=== PATIENT | male | born 1975 | race Caucasian/White ===

== ENCOUNTER 2017-11-18 14:27 | Emergency (ER) | payer MEDICAID, OTHER ==
[2017-11-18 14:27] VITALS: BMI 26.4
[2017-11-18] MEDS ORDERED: levETIRAcetam 1,500 MG in Sodium Chloride 0.9% 100 ML IV ONE (14:51)
[2017-11-18 14:53] VITALS: TEMP 97.4
[2017-11-18 15:20] LABS: BASO # 0.04 K/mm3 (0.0-2.0); BASO % 0.4 % (0.0-3.0); EOS # 0.3 (0.0-0.7); EOS % 3.2 % (1.5-5.0); GRAN # 5.18 (1.4-6.5); GRAN % 53.2 % (50.0-68.0); HEMOGLOBIN 14.8 g/dL (14.0-18.0); LYMPH # 3.8 (1.2-3.4); LYMPH % 38.5 % (22.0-35.0); MEAN CELL VOLUME 83.2 fl (80.0-105.0); MEAN CORPUSCULAR HEMOGLOBIN 27.6 pg (25.0-35.0); MEAN CORPUSCULAR HGB CONC 33.1 g/dl (31.0-37.0); MEAN PLATELET VOLUME 10.1 fl (7.0-11.0); MONO # 0.5 (0.1-0.6); MONO % 4.7 % (1.0-6.0); RBC 5.37 10^6/uL (3.5-6.1); RED CELL DISTRIBUTION WIDTH 13.6 % (11.5-14.5); WHITE BLOOD COUNT 9.7 10^3/ul (4.5-11.0)
--- NOTE | 2017-11-18 15:34 | ED PDOC ---
Arrival/HPI - General Chief Complaint: Seizure Time Seen by Provider: 11/18/17 14:32 Historian: Patient - History of Present Illness Narrative History of Present Illness (Text): 11/18/17 15:33 42yo male with PMhx of seizure bib BLS for witnessed seizure this afternoon. The by the bedside states she saw the patient shaking while sitting on a sofa. States this is patient's typical symptom with seizure. States patient was altered for few seconds s/p. However denies tongue bitting or urinary incontinence. Patient states he usually takes Keppra 750m twice daily, but only took a tab yesterday because he ran out of his medication. States he saw his Doctor 3months ago. He denies any current headache, chest pain, focal weakness, dizziness, any other complaint. Past Medical History - Provider Review Nursing Documentation Reviewed: Yes - Infectious Disease Hx of Infectious Diseases: None - Cardiac Hx Cardiac Disorders: No - Pulmonary Hx Respiratory Disorders: No - Neurological Hx Neurological Disorder: Yes Hx Seizures: Yes Other/Comment: brain mass s/p removal - HEENT Hx HEENT Disorder: No - Renal Hx Renal Disorder: No - Endocrine/Metabolic Hx Endocrine Disorders: No - Hematological/Oncological Hx Blood Disorders: No - Integumentary Hx Dermatological Disorder: No - Musculoskeletal/Rheumatological Hx Musculoskeletal Disorders: Yes Hx Fractures: Yes - Gastrointestinal Hx Gastrointestinal Disorders: No - Genitourinary/Gynecological Hx Genitourinary Disorders: No - Psychiatric Hx Psychophysiologic Disorder: No Hx Substance Use: No - Surgical History Hx Musculoskeletal Surgery: Yes (bilat shoulder "with metal put in") Other/Comment: brain surgery - Anesthesia Hx Anesthesia: Yes Hx Anesthesia Reactions: No Hx Malignant Hyperthermia: No - Suicidal Assessment Feels Threatened In Home Enviroment: No Family/Social History - Physician Review Nursing Documentation Reviewed: Yes Family/Social History: Unknown Family HX Smoking Status: Former Smoker Hx Alcohol Use: No Hx Substance Use: No Allergies/Home Meds Allergies/Adverse Reactions: Allergies No Known Allergies Allergy (Verified 11/18/17 14:39) Review of Systems - Physician Review All systems were reviewed & negative as marked: Yes - Review of Systems Constitutional: Normal Eyes: Normal ENT: Normal Respiratory: Normal Cardiovascular: Normal Gastrointestinal: Normal Genitourinary Male: Normal Musculoskeletal: Normal Skin: Normal Neurological: Seizure Endocrine: Normal Hemo/Lymphatic: Normal Psychiatric: Normal Physical Exam Vital Signs Reviewed: Yes Vital Signs Temp Pulse Resp BP Pulse Ox 11/18/17 16:41 82 16 132/79 99 11/18/17 14:53 97.4 F L 11/18/17 14:44 93 H 15 142/73 91 L Temperature: Afebrile Blood Pressure: Normal Pulse: Regular Respiratory Rate: Normal Appearance: Positive for: Well-Appearing, Non-Toxic, Comfortable Pain Distress: None Mental Status: Positive for: Alert and Oriented X 3 - Systems Exam Head: Present: Atraumatic, Normocephalic Pupils: Present: PERRL Extroacular Muscles: Present: EOMI Conjunctiva: Present: Normal Mouth: Present: Moist Mucous Membranes Neck: Present: Normal Range of Motion Respiratory/Chest: Present: Clear to Auscultation, Good Air Exchange. No: Respiratory Distress, Accessory Muscle Use Cardiovascular: Present: Regular Rate and Rhythm, Normal S1, S2. No: Murmurs Abdomen: Present: Normal Bowel Sounds. No: Tenderness, Distention, Peritoneal Signs Back: Present: Normal Inspection Upper Extremity: Present: Normal Inspection. No: Cyanosis, Edema Lower Extremity: Present: Normal Inspection. No: Edema Neurological: Present: GCS=15, CN II-XII Intact, Speech Normal, Motor Func Grossly Intact, Normal Sensory Function, Normal Cerebellar Funct, Norm Deep Tendon Reflexes, Gait Normal, Memory Normal Skin: Present: Warm, Dry, Normal Color. No: Rashes Psychiatric: Present: Alert, Oriented x 3, Normal Insight, Normal Concentration Medical Decision Making ED Course and Treatment: 11/18/17 17:28 PT in ED for stated history. He was AAO x3 and neurologically intact in ED. Lab was nonspecific. Keppra level pending PT was loaded with 1500mg of keppra in ED Head CT IMPRESSION: Right frontotemporal encephalomalacia with 5 mm midline shift towards the left side. Cystic encephalomalacia right middle cranial fossa. No acute hemorrhage. No evidence of acute infarct. Status post right frontotemporal craniotomy. Case was ANT Adams in ED and she recommends that pt be DC home with a rx of 1000mg keppra and outpt f/u in 2weeks Result and plan was DW both pt and the and he expressed understanding - Lab Interpretations Lab Results: 11/18/17 14:50 11/18/17 14:50 Lab Results 11/18/17 14:50: Sodium 141, Potassium 4.2, Chloride 104, Carbon Dioxide 26, Anion Gap 15, BUN 19, Creatinine 1.0, Est GFR ( Amer) > 60, Est GFR (Non- Af Amer) > 60, Random Glucose 185 H, Calcium 10.7 H, Total Bilirubin 0.4, AST 52 , ALT 60 H, Alkaline Phosphatase 68, Total Creatine Kinase 743 H, CK-MB (CK-2) 3.0, CK-MB (CK-2) % 0.3 L, Total Protein 7.3, Albumin 4.1, Globulin 3.2, Albumin /Globulin Ratio 1.3 11/18/17 14:50: WBC 9.7, RBC 5.37, Hgb 14.8, Hct 44.7, MCV 83.2, MCH 27.6, MCHC 33.1, RDW 13.6, Plt Count 322, MPV 10.1, Gran % 53.2, Lymph % (Auto) 38.5 H, [place] % (Auto) 4.7, Eos % (Auto) 3.2, Baso % (Auto) 0.4, Gran # 5.18, Lymph # ( Auto) 3.8 H, [place] # (Auto) 0.5, Eos # (Auto) 0.3, Baso # (Auto) 0.04 - RAD Interpretation Radiology Orders: 11/18/17 14:49 HEAD W/O CONTRAST [CT] Stat - Medication Orders Current Medication Orders: Discontinued Medications Levetiracetam 1,500 mg/ Sodium (Chloride) 115 mls @ 460 mls/hr IV ONCE ONE Stop: 11/18/17 15:05 Last Admin: 11/18/17 16:01 Dose: 460 mls/hr eMAR Start Stop Document 11/18/17 16:01 AL (Rec: 11/18/17 16:01 AL [id number]) Intravenous Solution Start Date 11/18/17 Start Time 16:01 Disposition/Present on Arrival - Present on Arrival Any Indicators Present on Arrival: No History of DVT/PE: No History of Uncontrolled Diabetes: No Urinary Catheter: No History of Decub. Ulcer: No History Surgical Site Infection Following: None - Disposition Have Diagnosis and Disposition been Completed?: Yes Diagnosis: Seizure Disposition: HOME/ ROUTINE Disposition Time: 17:30 Patient Plan: Discharge Condition: STABLE Discharge Instructions (ExitCare): Seizures, Adult (DC) Additional Instructions: follow up with Neurologist, Dr. Adams in 2weeks Return to ED for any new symptoms Prescriptions: Levetiracetam [Keppra] 500 mg PO BID #120 tablet Referrals: Lolita Paulino, [Primary Care Provider] - Follow up with primary Darin Adams MD [Staff Provider] - Follow up with primary Forms: [employer] (German)
[2017-11-18 15:39] LABS: ALT/SGPT 60 U/L (7-56); AST/SGOT 52 U/L (17-59); BLOOD UREA NITROGEN 19 mg/dL (7-21); CALCIUM 10.7 mg/dL (8.4-10.5); GFR AFRICAN-AMERICAN > 60; GFR NON-AFRICAN AMERICAN > 60
--- NOTE | 2017-11-18 15:57 | CT ---
PROCEDURE: CT HEAD WITHOUT CONTRAST. HISTORY: seizure COMPARISON: 09/20/2015 TECHNIQUE: Axial computed tomography images were obtained through the head/brain without intravenous contrast. Radiation dose: Total exam DLP = 873.41 mGy-cm. This CT exam was performed using one or more of the following dose reduction techniques: Automated exposure control, adjustment of the mA and/or kV according to patient size, and/or use of iterative reconstruction technique. FINDINGS: HEMORRHAGE: No intracranial hemorrhage. BRAIN: There is no intracranial mass. There is right frontotemporal encephalomalacia, essentially unchanged compared to prior examination. There is cystic encephalomalacia of the right middle cranial fossa, unchanged. There is no evidence of acute infarct. VENTRICLES: There is no hydrocephalus. There is midline shift towards the left by approximately 5 mm. This is essentially unchanged from prior examination. The basilar cisterns are preserved. CALVARIUM: Right frontotemporal craniotomy. PARANASAL SINUSES: Mild chronic ethmoid sinusitis MASTOID AIR CELLS: Unremarkable as visualized. No inflammatory changes. OTHER FINDINGS: None. IMPRESSION: Right frontotemporal encephalomalacia with 5 mm midline shift towards the left side. Cystic encephalomalacia right middle cranial fossa. No acute hemorrhage. No evidence of acute infarct. Status post right frontotemporal craniotomy.
[2017-11-18 16:30] LABS: ALB/GLOB RATIO 1.3 (1.1-1.8); ALBUMIN 4.1 g/dL (3.0-4.8)
[2017-11-18 16:42] VITALS: RESP 16
[2017-11-18 16:50] LABS: CK MB% 0.3 % (2.5-3.0)
[2017-11-18 17:48] VITALS: BP 130/76; PULSE 81; O2SAT 97
--- NOTE | 2017-11-18 19:35 | CARD ---
APPROVED REPORT EKG Measurement Heart [id number] <Conclusion> Normal sinus rhythm Prolonged QT Abnormal ECG
== END 2017-11-18 17:57 | disposition home or self-care (01) ==
LOC: ED 14:27
DX: R56.9 Unspecified convulsions (principal); Z87.891 Personal history of nicotine dependence
CPT/HCPCS: 70450; 80053; 80299; 82550; 82553; 85025; 93005; 99285; J1953

== ENCOUNTER 2018-08-10 22:45 | Emergency (ER) | payer SELFPAY ==
[2018-08-10 22:46] VITALS: BMI 34.8
[2018-08-10 22:48] VITALS: TEMP 98.8
[2018-08-10 23:31] LABS: BASO # 0.02 K/mm3 (0.0-2.0); BASO % 0.2 % (0.0-3.0); EOS # 0.2 (0.0-0.7); EOS % 2.6 % (1.5-5.0); GRAN # 5.38 (1.4-6.5); GRAN % 57.3 % (50.0-68.0); HEMOGLOBIN 14.2 g/dL (14.0-18.0); LYMPH # 3.2 (1.2-3.4); LYMPH % 33.5 % (22.0-35.0); MEAN CELL VOLUME 80.9 fl (80.0-105.0); MEAN CORPUSCULAR HEMOGLOBIN 27.4 pg (25.0-35.0); MEAN CORPUSCULAR HGB CONC 33.8 g/dl (31.0-37.0); MEAN PLATELET VOLUME 9.4 fl (7.0-11.0); MONO # 0.6 (0.1-0.6); MONO % 6.4 % (1.0-6.0); RBC 5.19 10^6/uL (3.5-6.1); RED CELL DISTRIBUTION WIDTH 13.4 % (11.5-14.5); WHITE BLOOD COUNT 9.4 10^3/uL (4.5-11.0)
[2018-08-10 23:39] LABS: ALB/GLOB RATIO 1.3 (1.1-1.8); ALT/SGPT 50 U/L (7-56); AST/SGOT 31 U/L (17-59); BLOOD UREA NITROGEN 21 mg/dL (7-21); CALCIUM 10.1 mg/dL (8.4-10.5); GFR NON-AFRICAN AMERICAN > 60
--- NOTE | 2018-08-11 01:19 | ED PDOC ---
Arrival/HPI - General Chief Complaint: Seizure Time Seen by Provider: 08/10/18 22:45 Historian: Patient - History of Present Illness Narrative History of Present Illness (Text): 08/11/18 04:07 43 year old male, whose past medical history includes brain tumor resected in 2013, and seizure disorder, presents to the emergency department for evaluation status post seizure. Patient informs of his history of seizures, stating he is compliant on Keppra. Patient states his last known seizure was 8 months ago. Patient denies any fever, headache, chest pain, shortness of breath, or any other complaints. Time/Duration: Prior to Arrival Past Medical History - Provider Review Nursing Documentation Reviewed: Yes - Infectious Disease Hx of Infectious Diseases: None - Cardiac Hx Cardiac Disorders: No - Pulmonary Hx Respiratory Disorders: No - Neurological Hx Neurological Disorder: Yes Hx Seizures: Yes Other/Comment: brain mass s/p removal - HEENT Hx HEENT Disorder: No - Renal Hx Renal Disorder: No - Endocrine/Metabolic Hx Endocrine Disorders: No - Hematological/Oncological Hx Blood Disorders: No - Integumentary Hx Dermatological Disorder: No - Musculoskeletal/Rheumatological Hx Musculoskeletal Disorders: Yes Hx Fractures: Yes - Gastrointestinal Hx Gastrointestinal Disorders: No - Genitourinary/Gynecological Hx Genitourinary Disorders: No - Psychiatric Hx Psychophysiologic Disorder: No Hx Substance Use: No - Surgical History Hx Musculoskeletal Surgery: Yes (bilat shoulder "with metal put in") Other/Comment: brain surgery - Anesthesia Hx Anesthesia: Yes Hx Anesthesia Reactions: No Hx Malignant Hyperthermia: No - Suicidal Assessment Feels Threatened In Home Enviroment: No Family/Social History - Physician Review Nursing Documentation Reviewed: Yes Family/Social History: No Known Family HX Smoking Status: Former Smoker Hx Alcohol Use: No Hx Substance Use: No Allergies/Home Meds Allergies/Adverse Reactions: Allergies No Known Allergies Allergy (Verified 08/10/18 22:46) Review of Systems - Physician Review All systems were reviewed & negative as marked: Yes - Review of Systems Constitutional: absent: Fevers Respiratory: absent: SOB Cardiovascular: absent: Chest Pain Neurological: Seizure. absent: Headache Physical Exam Vital Signs Reviewed: Yes Vital Signs Temp Pulse Resp BP Pulse Ox 08/10/18 22:48 98.8 F 100 H 20 133/85 95 Temperature: Afebrile Blood Pressure: Normal Pulse: Tachycardic Respiratory Rate: Normal Appearance: Positive for: Well-Appearing, Non-Toxic, Comfortable Pain Distress: None Mental Status: Positive for: Alert and Oriented X 3 Finger Stick Blood Glucose: 119 - Systems Exam Head: Present: Atraumatic, Normocephalic Pupils: Present: PERRL Extroacular Muscles: Present: EOMI Conjunctiva: Present: Normal Mouth: Present: Moist Mucous Membranes. No: Normal Tounge (Very small bite valdez on left side of tongue) Neck: Present: Normal Range of Motion Respiratory/Chest: Present: Clear to Auscultation, Good Air Exchange. No: Respiratory Distress, Accessory Muscle Use Cardiovascular: Present: Regular Rate and Rhythm, Normal S1, S2. No: Murmurs Abdomen: No: Tenderness, Distention, Peritoneal Signs Back: Present: Normal Inspection Upper Extremity: Present: Normal Inspection. No: Cyanosis, Edema Lower Extremity: Present: Normal Inspection. No: Edema Neurological: Present: GCS=15, CN II-XII Intact, Speech Normal Skin: Present: Warm, Dry, Normal Color. No: Rashes Psychiatric: Present: Alert, Oriented x 3, Normal Insight, Normal Concentration Medical Decision Making ED Course and Treatment: 08/11/18 01:22 Impression: 43 year old male presents for evaluation status post seizure. Plan: -- CT Head -- Reassess and disposition Prior Visits: Notes and results from previous visits were reviewed. Progress Notes: 08/11/18 01:22 CT of the head Clinical history: seizure. Technique: Multiple axial CT images were obtained through the head without administration of contrast. DLP 938.87 Comparison: 11/18/2017. Findings: The ventricles and sulci are symmetric bilaterally. Encephalomalacia and craniotomy changes in the right temporal lobe are stable. Diffuse low attenuation in the right frontal lobe and right temporal lobe remain with minimal mass effect appreciated. There is no evidence of acute hemorrhage or infarct. There is no midline shift, mass effect, or extra-axial fluid collection. The osseous structures are unremarkable. The visualized paranasal sinuses and mastoid air cells are clear. Impression: 1. No evidence of acute intracranial hemorrhage or infarct. 2. Craniotomy changes in the right temporal lobe with area of low attenuation in the right middle cerebral artery distribution is stable since the prior examination. Minimal mass effect remains. If there is further clinical concern, MRI of the brain would be recommended for further evaluation. 08/11/18 01:30 Patient will follow up with neurologist at [place] in the next few days - Lab Interpretations Lab Results: 08/10/18 23:15 08/10/18 23:15 Lab Results 08/10/18 23:15: Sodium 137, Potassium 4.1, Chloride 104, Carbon Dioxide 23, Anion Gap 15, BUN 21, Creatinine 1.1, Est GFR ( Amer) > 60, Est GFR (Non- Af Amer) > 60, Random Glucose 110, Calcium 10.1, Total Bilirubin 0.2, AST 31, ALT 50, Alkaline Phosphatase 60, Total Protein 7.1, Albumin 4.0, Globulin 3.1, Albumin/Globulin Ratio 1.3 08/10/18 23:15: WBC 9.4, RBC 5.19, Hgb 14.2, Hct 42.0, MCV 80.9, MCH 27.4, MCHC 33.8, RDW 13.4, Plt Count 304, MPV 9.4, Gran % 57.3, Lymph % (Auto) 33.5, [place] % (Auto) 6.4 H, Eos % (Auto) 2.6, Baso % (Auto) 0.2, Gran # 5.38, Lymph # (Auto) 3.2, [place] # (Auto) 0.6, Eos # (Auto) 0.2, Baso # (Auto) 0.02 - RAD Interpretation Radiology Orders: 08/10/18 23:05 HEAD W/O CONTRAST [CT] Stat - Scribe Statement The provider has reviewed the documentation as recorded by the Clayton Ramos Provider Scribe Attestation: All medical record entries made by the Eddibsusan were at my direction and personally dictated by me. I have reviewed the chart and agree that the record accurately reflects my personal performance of the history, physical exam, medical decision making, and the department course for this patient. I have also personally directed, reviewed, and agree with the discharge instructions and disposition. Disposition/Present on Arrival - Present on Arrival Any Indicators Present on Arrival: No History of DVT/PE: No History of Uncontrolled Diabetes: No Urinary Catheter: No History of Decub. Ulcer: No History Surgical Site Infection Following: None - Disposition Have Diagnosis and Disposition been Completed?: Yes Diagnosis: Seizure Disposition: HOME/ ROUTINE Disposition Time: 00:55 Condition: GOOD Discharge Instructions (ExitCare): Seizures, Adult (DC) Additional Instructions: LIZETTE DAI, thank you for letting us take care of you today. Your provider was Fidencio Warren DO and you were treated for SEIZURE. The emergency medical care you received today was directed at your acute symptoms. If you were prescribed any medication, please fill it and take as directed. It may take several days for your symptoms to resolve. Return to the Emergency Department if your symptoms worsen, do not improve, or if you have any other problems. Please contact your doctor or call one of the physicians/clinics you have been referred to that are listed on the Patient Visit Information form that is included in your discharge packet. Bring any paperwork you were given at discharge with you along with any medications you are taking to your follow up visit. Our treatment cannot replace ongoing medical care by a primary care pro vider outside of the emergency department. Thank you for allowing the [facility] team to be part of your care today. Continue taking your medication as prescribed and follow up with your ne urologist in the morning. Return to the emergency room if you have any concerns. Referrals: FAMILY PROVIDER,NO [Primary Care Provider] - Follow up with primary Forms: [employer] (Turkish)
[2018-08-11 02:17] VITALS: BP 110/65; PULSE 81; RESP 18; O2SAT 96
--- NOTE | 2018-08-11 10:04 | CT ---
Date of service: 08/11/2018 PROCEDURE: CT HEAD WITHOUT CONTRAST. HISTORY: seizure - h/o brain tumor removed in 2013 COMPARISON: CT 09/20/2015 and 11/18/2017 TECHNIQUE: Axial computed tomography images were obtained through the head/brain without intravenous contrast. Radiation dose: Total exam DLP = 938.87 mGy-cm. This CT exam was performed using one or more of the following dose reduction techniques: Automated exposure control, adjustment of the mA and/or kV according to patient size, and/or use of iterative reconstruction technique. FINDINGS: HEMORRHAGE: No intracranial hemorrhage. BRAIN: There has been a right-sided craniotomy. There is a large area of cystic encephalomalacia or a postoperative cyst in the right middle cranial fossa measuring 43 x 51 mm. There is a large area of low density in the right frontal and temporal lobe measuring 55 x 100 mm. There is associated mass effect with compression of the right lateral ventricle. The finding is suspicious for underlying infiltrating tumor. The finding is unchanged. MRI would be helpful for further evaluation. VENTRICLES: Unremarkable. No hydrocephalus. CALVARIUM: Unremarkable. PARANASAL SINUSES: Unremarkable as visualized. No significant inflammatory changes. MASTOID AIR CELLS: Unremarkable as visualized. No inflammatory changes. OTHER FINDINGS: The report concurs with the preliminary [facility] report IMPRESSION: There is a large area of low density in the right frontal and temporal lobe measuring 55 x 100 mm. There is associated mass effect with compression of the right lateral ventricle. The finding is suspicious for underlying infiltrating tumor. The finding is unchanged. MRI would be helpful for further evaluation
== END 2018-08-11 01:11 | disposition home or self-care (01) ==
LOC: ED 22:45
DX: G40.909 Epilepsy, unspecified, not intractable, without status epilepticus (principal); Z87.891 Personal history of nicotine dependence

== ENCOUNTER 2018-10-11 14:14 | Emergency (ER) | payer SELFPAY ==
[2018-10-11 14:18] VITALS: BMI 21.7
[2018-10-11 14:44] VITALS: RESP 18
[2018-10-11] MEDS ORDERED: Sodium Chloride 0.9% 1,000 ML IV STA (14:44)
[2018-10-11 15:01] LABS: ALB/GLOB RATIO 1.4 (1.1-1.8); ALBUMIN 4.5 g/dL (3.0-4.8); ALT/SGPT 34 U/L (7-56); AST/SGOT 26 U/L (17-59); BLOOD UREA NITROGEN 17 mg/dL (7-21); CALCIUM 10.2 mg/dL (8.4-10.5); GFR NON-AFRICAN AMERICAN > 60
--- NOTE | 2018-10-11 15:23 | ED PDOC ---
Arrival/HPI - General Chief Complaint: Seizure Time Seen by Provider: 10/11/18 14:21 Historian: Patient - History of Present Illness Narrative History of Present Illness (Text): 10/11/18 15:20 A 43 year old male, whose past medical history includes brain tumor s/p surgery and seizure disorder, presents to the emergency department complaining of witnessed seizure episode at home. Patient reports seizure was witnessed by his . Patient denies any trauma/fall, or any other complaints at this time. No PMD Past Medical History - Provider Review Nursing Documentation Reviewed: Yes - Infectious Disease Hx of Infectious Diseases: None - Cardiac Hx Cardiac Disorders: No - Pulmonary Hx Respiratory Disorders: No - Neurological Hx Neurological Disorder: Yes Hx Seizures: Yes Other/Comment: brain mass s/p removal - HEENT Hx HEENT Disorder: No - Renal Hx Renal Disorder: No - Endocrine/Metabolic Hx Endocrine Disorders: No - Hematological/Oncological Hx Blood Disorders: No - Integumentary Hx Dermatological Disorder: No - Musculoskeletal/Rheumatological Hx Musculoskeletal Disorders: Yes Hx Fractures: Yes - Gastrointestinal Hx Gastrointestinal Disorders: No - Genitourinary/Gynecological Hx Genitourinary Disorders: No - Psychiatric Hx Psychophysiologic Disorder: No Hx Substance Use: No - Surgical History Hx Musculoskeletal Surgery: Yes (bilat shoulder "with metal put in") Other/Comment: brain surgery - Anesthesia Hx Anesthesia: Yes Hx Anesthesia Reactions: No Hx Malignant Hyperthermia: No - Suicidal Assessment Feels Threatened In Home Enviroment: No Family/Social History - Physician Review Nursing Documentation Reviewed: Yes Family/Social History: No Known Family HX Smoking Status: Former Smoker Hx Alcohol Use: No Hx Substance Use: No Allergies/Home Meds Allergies/Adverse Reactions: Allergies No Known Allergies Allergy (Verified 08/10/18 22:46) Review of Systems - Physician Review All systems were reviewed & negative as marked: Yes - Review of Systems Constitutional: absent: Other (no trauma/fall) Neurological: Seizure Physical Exam Vital Signs Reviewed: Yes Vital Signs Temp Pulse Resp BP Pulse Ox 10/11/18 14:15 98.7 F 94 H 18 96/57 L 96 Temperature: Afebrile Blood Pressure: Normal Pulse: Regular Respiratory Rate: Normal Appearance: Positive for: Well-Appearing, Non-Toxic, Comfortable Pain Distress: None Mental Status: Positive for: Alert and Oriented X 3 - Systems Exam Head: Present: Atraumatic, Normocephalic Pupils: Present: PERRL Extroacular Muscles: Present: EOMI Conjunctiva: Present: Normal Mouth: Present: Moist Mucous Membranes Neck: Present: Normal Range of Motion. No: JVD Respiratory/Chest: Present: Clear to Auscultation, Good Air Exchange. No: Respiratory Distress, Accessory Muscle Use Cardiovascular: Present: Regular Rate and Rhythm, Normal S1, S2. No: Murmurs Abdomen: No: Tenderness, Distention, Peritoneal Signs Back: Present: Normal Inspection Upper Extremity: Present: Normal Inspection. No: Cyanosis, Edema Lower Extremity: Present: Normal Inspection. No: Edema Neurological: Present: GCS=15, CN II-XII Intact, Speech Normal, Motor Func Grossly Intact (5/5 motor strength.) Skin: Present: Warm, Dry, Normal Color. No: Rashes Psychiatric: Present: Alert, Oriented x 3, Normal Insight, Normal Concentration Medical Decision Making ED Course and Treatment: 10/11/18 15:22 Impression: 43 year old male with witnessed seizure episode at home (witnessed by ). No acute findings on physical exam; 5/5 motor strength. Plan: -- Labs -- IV Fluids -- Urinalysis -- Urine Culture -- Reassess and disposition Progress Notes: The pt is feeling better and has no other complaint. He is requesting MRI but told him that I had plan for ct head. He had one episode this afternoon and has been seizure free since that time. His last seizure before today was last July. 10/11/2018 18:[address] IMPRESSION: Large low density area mainly at the right temporal lobe region but extending to the parietal lobe and in the deep white matter of the parietal region. The findings are likely related to an area of encephalomalacia and infarction. Similar appearance is compared to the previous study. No acute hemorrhage. Craniotomy defect noted. Clinical correlation advised. Dictator: Sunny Henderson MD Progress notes: The pt is feeling better and had no seizure while he's in the ED. The ct head shows no new changes. He wants to follow up with our neurologist. - Lab Interpretations Lab Results: Total Bilirubin 0.3 mg/dL (0.2-1.3) 10/11/18 14:47 AST 26 U/L (17-59) 10/11/18 14:47 ALT 34 U/L (7-56) 10/11/18 14:47 Alkaline Phosphatase 63 U/L (38-126) 10/11/18 14:47 Total Protein 7.8 g/dL (5.8-8.3) 10/11/18 14:47 Albumin 4.5 g/dL (3.0-4.8) 10/11/18 14:47 Globulin 3.3 gm/dL 10/11/18 14:47 Albumin/Globulin Ratio 1.4 (1.1-1.8) 10/11/18 14:47 - Medication Orders Current Medication Orders: Sodium Chloride (Sodium Chloride 0.9%) 1,000 mls @ 999 mls/hr IV .Q1H1M STA Stop: 10/11/18 15:44 Last Admin: 10/11/18 15:11 Dose: 999 mls/hr eMAR Start Stop Document 10/11/18 15:11 [facility] (Rec: 10/11/18 15:11 [facility] [id number]) Intravenous Solution Start Date 10/11/18 Start Time 15:11 End Date 10/11/18 End time 16:11 Total Infusion Time 60 - Scribe Statement The provider has reviewed the documentation as recorded by the Clayton Davis Provider Scribe Attestation: All medical record entries made by the Scribe were at my direction and personally dictated by me. I have reviewed the chart and agree that the record accurately reflects my personal performance of the history, physical exam, medical decision making, and the department course for this patient. I have also personally directed, reviewed, and agree with the discharge instructions and disposition. Disposition/Present on Arrival - Present on Arrival History of DVT/PE: No History of Uncontrolled Diabetes: No Urinary Catheter: No History of Decub. Ulcer: No History Surgical Site Infection Following: None - Disposition Diagnosis: Seizure disorder Disposition: HOME/ ROUTINE Patient Problems: Current Active Problems Problem Status Onset Seizure disorder Acute Condition: GOOD Discharge Instructions (ExitCare): Seizures, Adult (DC) Additional Instructions: Follow up with Dr Adams in a few days and continue taking Keppra as directed. Referrals: Darin Adams MD [Staff Provider] - Follow up with primary Forms: [employer] (Sami)
[2018-10-11 15:24] LABS: BASO # 0.03 K/mm3 (0.0-2.0); BASO % 0.2 % (0.0-3.0); EOS # 0.3 (0.0-0.7); EOS % 2.4 % (1.5-5.0); HEMOGLOBIN 15.9 g/dL (14.0-18.0); LYMPH # 6.2 (1.2-3.4); LYMPH % 49.8 % (22.0-35.0); MEAN CELL VOLUME 81.5 fl (80.0-105.0); MEAN CORPUSCULAR HEMOGLOBIN 27.6 pg (25.0-35.0); MEAN CORPUSCULAR HGB CONC 33.8 g/dl (31.0-37.0); MEAN PLATELET VOLUME 10.3 fl (7.0-11.0); MONO # 0.6 (0.1-0.6); MONO % 4.4 % (1.0-6.0); RBC 5.77 10^6/uL (3.5-6.1); RED CELL DISTRIBUTION WIDTH 13.2 % (11.5-14.5); WHITE BLOOD COUNT 12.4 10^3/uL (4.5-11.0)
[2018-10-11 19:42] VITALS: BP 135/78; PULSE 69; TEMP 98; O2SAT 98
--- NOTE | 2018-10-12 08:04 | CT ---
Date of service: 10/11/2018 PROCEDURE: CT HEAD WITHOUT CONTRAST. HISTORY: Seizure COMPARISON: Noncontrast head CT 08/11/2018. TECHNIQUE: Axial computed tomography images were obtained through the head/brain without intravenous contrast. Radiation dose: Total exam DLP = 1067.47 mGy-cm. This CT exam was performed using one or more of the following dose reduction techniques: Automated exposure control, adjustment of the mA and/or kV according to patient size, and/or use of iterative reconstruction technique. FINDINGS: HEMORRHAGE: No intracranial hemorrhage. BRAIN: Patient is again seen to be status post right frontal parietal craniotomy with involvement of the right temporal bone also evident. Postoperative cystic encephalomalacia is appreciate the right middle cranial fossa once again with extensive edema affecting the right frontal and temporal lobes extending into the basal right basal ganglia as well causing a midline left shift of some 9 mm compared to approximately 6 mm previously. There is increased effacement of the sulci diffusely, right side greater than left as well as the right lateral ventricle and there is bilateral lateral ventricles and the 3rd ventricle with the 4th ventricle normal in appearance. The suprasellar cistern remains diminished as well as the cisterns surrounding the brainstem with right cerebral peduncle likely edematous. Patient apparently had brain surgery in 2013 with current picture suspicious for worsening of infiltration of right fronto temporal tumor in the interval. MRI with and without contrast can be utilized for added characterization on a greater tissue resolution basis. VENTRICLES: As above. CALVARIUM: As above. PARANASAL SINUSES: Unremarkable as visualized. No significant inflammatory changes. MASTOID AIR CELLS: Unremarkable as visualized. No inflammatory changes. OTHER FINDINGS: None. 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 No intracranial hemorrhage appreciable. Mass effect also encroaches the basilar cisterns with postoperative changes at the right middle cranial fossa reiterated status post right frontoparietal craniotomy. Follow-up MRI with and without gadolinium is recommended for added characterization of likely right fronto temporal tumor progression. Concordant preliminary report from [facility], 10/11/2018 6:39 p.m..
== END 2018-10-11 19:42 | disposition home or self-care (01) ==
LOC: ED 14:14
DX: G40.909 Epilepsy, unspecified, not intractable, without status epilepticus (principal); Z87.891 Personal history of nicotine dependence
CPT/HCPCS: 70450; 80053; 85025; 96360; 99285; J7030

== ENCOUNTER 2018-10-25 11:45 | Inpatient (IN) | payer MEDICARE, MEDICAID, OTHER ==
[2018-10-25 11:45] VITALS: BMI 21.7
[2018-10-25] MEDS ORDERED: Sodium Chloride 0.9% 1,000 ML IV STA (12:07)
--- NOTE | 2018-10-25 12:08 | ED PDOC ---
Arrival/HPI - General Chief Complaint: Seizure Time Seen by Provider: 10/25/18 11:56 Historian: Patient, Partner - History of Present Illness Narrative History of Present Illness (Text): 10/25/18 12:08 43 year old male, with past medical history of brain tumor s/p surgery and seizure disorder, presents to emergency department following seizure this prior to arrival that lasted 2 minutes. Patient reports not having taken Keppra today. Patient generally takes 750 mg BID. Patient denies any other complaints. Time/Duration: Prior to Arrival Symptom Onset: Gradual Symptom Course: Unchanged Activities at Onset: Light Context: Home Past Medical History - Provider Review Nursing Documentation Reviewed: Yes - Infectious Disease Hx of Infectious Diseases: None - Cardiac Hx Cardiac Disorders: No - Pulmonary Hx Respiratory Disorders: No - Neurological Hx Neurological Disorder: Yes Hx Seizures: Yes Other/Comment: brain mass s/p removal - HEENT Hx HEENT Disorder: No - Renal Hx Renal Disorder: No - Endocrine/Metabolic Hx Endocrine Disorders: No - Hematological/Oncological Hx Blood Disorders: No - Integumentary Hx Dermatological Disorder: No - Musculoskeletal/Rheumatological Hx Musculoskeletal Disorders: Yes Hx Fractures: Yes - Gastrointestinal Hx Gastrointestinal Disorders: No - Genitourinary/Gynecological Hx Genitourinary Disorders: No - Psychiatric Hx Psychophysiologic Disorder: No Hx Substance Use: No - Surgical History Hx Musculoskeletal Surgery: Yes (bilat shoulder "with metal put in") Other/Comment: brain surgery - Anesthesia Hx Anesthesia: Yes Hx Anesthesia Reactions: No Hx Malignant Hyperthermia: No - Suicidal Assessment Feels Threatened In Home Enviroment: No Family/Social History - Physician Review Nursing Documentation Reviewed: Yes Family/Social History: Unknown Family HX Smoking Status: Former Smoker Hx Alcohol Use: No Hx Substance Use: No Allergies/Home Meds Allergies/Adverse Reactions: Allergies No Known Allergies Allergy (Verified 08/10/18 22:46) Review of Systems - Physician Review All systems were reviewed & negative as marked: Yes - Review of Systems Constitutional: absent: Fevers Respiratory: absent: SOB, Cough, Wheezing Cardiovascular: absent: Chest Pain Gastrointestinal: absent: Abdominal Pain, Diarrhea, Nausea, Vomiting Genitourinary Male: absent: Urinary Output Changes Musculoskeletal: absent: Back Pain, Neck Pain Skin: absent: Rash Neurological: Seizure Physical Exam Vital Signs Reviewed: Yes Vital Signs Temp Pulse Resp Pulse Ox 10/25/18 11:55 97.9 F 104 H 18 95 Temperature: Afebrile Blood Pressure: Normal Pulse: Regular Respiratory Rate: Normal Appearance: Positive for: Well-Appearing, Non-Toxic, Comfortable Pain Distress: None Mental Status: Positive for: Alert and Oriented X 3 Finger Stick Blood Glucose: 178 - Systems Exam Head: Present: Atraumatic, Normocephalic Pupils: Present: PERRL Extroacular Muscles: Present: EOMI Conjunctiva: Present: Normal Mouth: Present: Moist Mucous Membranes Neck: Present: Normal Range of Motion Respiratory/Chest: Present: Clear to Auscultation, Good Air Exchange. No: Respiratory Distress, Accessory Muscle Use Cardiovascular: Present: Regular Rate and Rhythm, Normal S1, S2. No: Murmurs Abdomen: No: Tenderness, Distention, Peritoneal Signs Back: Present: Normal Inspection Upper Extremity: Present: Normal Inspection. No: Cyanosis, Edema Lower Extremity: Present: Normal Inspection. No: Edema Neurological: Present: GCS=15, CN II-XII Intact, Speech Normal Skin: Present: Warm, Dry, Normal Color. No: Rashes Psychiatric: Present: Alert, Oriented x 3, Normal Insight, Normal Concentration Medical Decision Making ED Course and Treatment: 10/25/18 12:11 Impression: 43 year old male presents to emergency department following seizure prior to arrival. Plan: -- Labs -- Keppra -- IV Fluids -- Urinalysis -- Reassess and disposition Prior Visits: Notes and results from previous visits were reviewed. Progress Notes: 10/26/18 16:07 s/p seizure in er pt had another siezure. ativan given ct shows infiltrating tumor decardon given. discussed wtih dr fritz, dr amador, recommened decadron. accepted icu and hospitalist. s/p seizure neuro intact. - EKG Interpretation EKG Interpretation (Text): 10/25/18 12:12 EKG: Ordered, reviewed, and independently interpreted the EKG. Rate : 106 BPM Interpretation : sinus tachycardia Interpreted by ED Physician: Yes Type: 12 lead EKG - Medication Orders Current Medication Orders: Sodium Chloride (Sodium Chloride 0.9%) 1,000 mls @ 1,000 mls/hr IV .Q1H STA Stop: 10/25/18 13:06 - Scribe Statement The provider has reviewed the documentation as recorded by the Scribe Korey Tomas All medical record entries made by the Scribe were at my direction and personally dictated by me. I have reviewed the chart and agree that the record accurately reflects my personal performance of the history, physical exam, medical decision making, and the department course for this patient. I have also personally directed, reviewed, and agree with the discharge instructions and disposition. Disposition/Present on Arrival - Present on Arrival Any Indicators Present on Arrival: No History of DVT/PE: No History of Uncontrolled Diabetes: No Urinary Catheter: No History of Decub. Ulcer: No History Surgical Site Infection Following: None - Disposition Have Diagnosis and Disposition been Completed?: Yes Diagnosis: Seizure Disposition: HOSPITALIZED Disposition Time: 11:00 Condition: CRITICAL Critical Care Time - Critical Care Note Total Time (in mins): 60 Documented critical care: time excludes all time spent performing seperately billable procedures.
[2018-10-25 12:44] LABS: BASO # 0.03 K/mm3 (0.0-2.0); BASO % 0.3 % (0.0-3.0); EOS % 0.1 % (1.5-5.0); HEMOGLOBIN 15.5 g/dL (14.0-18.0); LYMPH % 16.8 % (22.0-35.0); MEAN CELL VOLUME 82.1 fl (80.0-105.0); MEAN CORPUSCULAR HGB CONC 32.8 g/dl (31.0-37.0); MEAN PLATELET VOLUME 10.1 fl (7.0-11.0); MONO # 0.3 (0.1-0.6); MONO % 2.3 % (1.0-6.0); RBC 5.75 10^6/uL (3.5-6.1); RED CELL DISTRIBUTION WIDTH 13.1 % (11.5-14.5); WHITE BLOOD COUNT 11.8 10^3/uL (4.5-11.0)
[2018-10-25 12:49] LABS: INR 0.99; PARTIAL THROMBOPLASTIN TIME 31.8 Seconds (26.9-38.3); PROTHROMBIN TIME 11.2 SECONDS (9.4-12.5)
[2018-10-25 14:19] LABS: ALB/GLOB RATIO 1.4 (1.1-1.8); ALBUMIN 4.3 g/dL (3.0-4.8); ALT/SGPT 25 U/L (7-56); AST/SGOT 27 U/L (17-59); BLOOD UREA NITROGEN 21 mg/dL (7-21); CALCIUM 9.8 mg/dL (8.4-10.5); GFR NON-AFRICAN AMERICAN > 60; LIPASE 86 U/L (23-300)
[2018-10-25] MEDS ORDERED: Iohexol 350 MG/100 ML VIAL ONE (14:51)
--- NOTE | 2018-10-25 16:12 | CT ---
Date of service: 10/25/2018 PROCEDURE: CT HEAD WITHOUT CONTRAST. HISTORY: seizure COMPARISON: 10/11/2018 TECHNIQUE: Axial computed tomography images were obtained through the head/brain without intravenous contrast. Radiation dose: Total exam DLP = 1002.69 mGy-cm. This CT exam was performed using one or more of the following dose reduction techniques: Automated exposure control, adjustment of the mA and/or kV according to patient size, and/or use of iterative reconstruction technique. FINDINGS: HEMORRHAGE: No intracranial hemorrhage. BRAIN: Patient is status post right frontal parietal craniotomy. There has been resection of the anterior right temporal lobe. There is edema and mass effect consistent with an infiltrating tumor. There is some mass effect upon the right lateral ventricle specifically the frontal horn. Findings are unchanged. VENTRICLES: Unremarkable. No hydrocephalus. CALVARIUM: Previous right-sided craniotomy PARANASAL SINUSES: Unremarkable as visualized. No significant inflammatory changes. MASTOID AIR CELLS: Unremarkable as visualized. No inflammatory changes. OTHER FINDINGS: None. IMPRESSION: Patient is status post right frontal parietal craniotomy. There has been resection of the anterior right temporal lobe. There is edema and mass effect consistent with an infiltrating tumor. There is some mass effect upon the right lateral ventricle specifically the frontal horn. Findings are unchanged. There are no acute findings.
--- NOTE | 2018-10-25 16:13 | CT ---
Date of service: 10/25/2018 PROCEDURE: CT Abdomen and Pelvis with contrast HISTORY: upper abd pain COMPARISON: None. TECHNIQUE: Contrast dose: Radiation dose: Total exam DLP = 1245.03 mGy-cm. This CT exam was performed using one or more of the following dose reduction techniques: Automated exposure control, adjustment of the mA and/or kV according to patient size, and/or use of iterative reconstruction technique. FINDINGS: LOWER THORAX: Unremarkable. LIVER: Unremarkable. No gross lesion or ductal dilatation. GALLBLADDER AND BILE DUCTS: Unremarkable. PANCREAS: Unremarkable. No gross lesion or ductal dilatation. SPLEEN: Unremarkable. ADRENALS: Unremarkable. No mass. KIDNEYS AND URETERS: Unremarkable. No hydronephrosis. No solid mass. VASCULATURE: Unremarkable. No aortic aneurysm. No aortic atherosclerotic calcification or mural plaque present. BOWEL: Unremarkable. No obstruction. No gross mural thickening. APPENDIX: Normal appendix. PERITONEUM: Unremarkable. No free fluid. No free air. LYMPH NODES: Unremarkable. No enlarged lymph nodes. BLADDER: Unremarkable. REPRODUCTIVE: Unremarkable. BONES: No acute fracture. OTHER FINDINGS: None. IMPRESSION: Unremarkable contrast enhanced CT of the abdomen and pelvis.
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
[2018-10-25] MEDS ORDERED: Sodium Chloride 0.9% 1,000 ML IV SCH (18:00)
--- NOTE | 2018-10-25 20:41 | CARD ---
APPROVED REPORT Date of service: 10/25/2018 EKG Measurement Heart [id number] <Conclusion> Sinus tachycardia Leftward axis NDSTT abnormalities Borderline ECG
[2018-10-25 20:55] LABS: PH,URINE 6.5 (4.7-8.0); URINE BILIRUBIN NEGATIVE (NEGATIVE); URINE BLOOD NEGATIVE (NEGATIVE); URINE GLUCOSE (UA) NEGATIVE (NEGATIVE); URINE LEUKOCYTE ESTERASE NEGATIVE Leu/uL (NEGATIVE); URINE PROTEIN NEGATIVE mg/dL (<30 mg/dL); URINE UROBILINOGEN 0.2 E.U./dL (<1 E.U./dL)
[2018-10-25 20:57] LABS: URINE APPEARANCE CLEAR (CLEAR); URINE COLOR STRAW (YELLOW)
--- NOTE | 2018-10-25 21:06 | CON ---
DATE: 10/25/2018 [employer] CONSULT REQUESTING PHYSICIAN: Dr. Blanc CHIEF COMPLAINT: The patient presented with seizures. HISTORY OF PRESENT ILLNESS: Mr. Garcia is a 43-year-old male with a history of brain tumor diagnosed in 2013. The patient is also status post resection of the anterior right temporal lobe and right frontal parietal craniotomy. Since the discovery of the tumor, the patient has had seizures. The patient had seizure today and brought to the emergency room. In the emergency room, had seizure as well, was given Ativan and Decadron. The patient is on Keppra, was given Keppra in the emergency room and it was stated that he missed a dose of Keppra at home. No fever or chills. No nausea or vomiting. No diarrhea. No chest pain or abdominal pain. The patient has been admitted to the Intensive Care Unit for observation. Neurosurgery has been consulted as well as Neurology, and it is felt that he should be observed in the ICU. PAST MEDICAL HISTORY: As above. ALLERGIES: HE HAS NO KNOWN ALLERGIES. CURRENT MEDICATIONS: Can be evaluated as per the nurses' intake form. SOCIAL HISTORY: He is a former smoker. No history of alcohol or drugs in the past. FAMILY HISTORY: Noncontributory. REVIEW OF SYSTEMS: CONSTITUTIONAL: All negative. HEENT: Has surgical scar on the head. RESPIRATORY: All negative. CARDIOVASCULAR: All negative. GASTROINTESTINAL: All negative. GENITOURINARY: All negative. MUSCULOSKELETAL: All negative. NEUROPSYCHIATRIC: The patient has history of brain mass, status post removal, and seizure disorder. HEMATOLOGIC: All negative. IMMUNOLOGIC: All negative. INTEGRITY: All negative. PHYSICAL EXAMINATION: VITAL SIGNS: Note that his temperature is 97.9, his pulse is 102, respirations are 18 and BP is 128/91. SKIN: Warm and dry. HEENT: Head atraumatic, normocephalic. Eyes reactive to light. Ears, nose and throat seem to be within normal limits. NECK: Supple. No JVD. No thyroid enlargement. No lymph nodes. HEART: Has regular rate and rhythm. Normal S1, S2, but tachycardic. LUNGS: Reveal good breath sounds bilaterally. ABDOMEN: Soft, nontender, decreased bowel sounds. GENITALIA AND RECTAL: Deferred. MUSCULOSKELETAL: No joint deformities. EXTREMITIES: Reveal no edema. NEUROLOGICAL: The patient had several seizures today, right now slightly postictal but moving around. All extremities mobile. LABORATORY DATA: His white count is 11.8, hemoglobin is 15.5, hematocrit 47.2 with platelets of 374,000. Sodium is 135, potassium 4.4, chloride 105, CO2 of 21 with a BUN of 21, creatinine of 0.8 and a glucose of 145. IMPRESSION: This patient has brain tumor diagnosed in 2013 and is status post resection of his anterior right temporal lobe with right frontal parietal craniotomy. The patient has seizure disorder. CT scan, note that it shows edema and mass effect consistent with infiltrating tumor. PLAN: We will continue to observe closely in the ICU for any seizures. The patient is getting Decadron, Zofran, Keppra, and will get Ativan for any acute seizures. He will be consulted with Neurology and Neurosurgery, and we will continue to treat aggressively and follow closely along with the other consultants and the primary care doctor. Shukri Bergman MD
[2018-10-26 08:44] LABS: BASO # 0.01 K/mm3 (0.0-2.0); BASO % 0.1 % (0.0-3.0); HEMOGLOBIN 13.8 g/dL (14.0-18.0); LYMPH # 1.8 (1.2-3.4); LYMPH % 12.5 % (22.0-35.0); MEAN CELL VOLUME 82.4 fl (80.0-105.0); MEAN CORPUSCULAR HEMOGLOBIN 27.1 pg (25.0-35.0); MEAN CORPUSCULAR HGB CONC 32.9 g/dl (31.0-37.0); MEAN PLATELET VOLUME 9.5 fl (7.0-11.0); MONO # 0.5 (0.1-0.6); MONO % 3.2 % (1.0-6.0); RBC 5.1 10^6/uL (3.5-6.1); RED CELL DISTRIBUTION WIDTH 13.2 % (11.5-14.5); WHITE BLOOD COUNT 14.4 10^3/uL (4.5-11.0)
[2018-10-26 08:56] LABS: ALB/GLOB RATIO 1.3 (1.1-1.8); ALT/SGPT 24 U/L (7-56); AST/SGOT 19 U/L (17-59); BLOOD UREA NITROGEN 17 mg/dL (7-21); CALCIUM 9.3 mg/dL (8.4-10.5); GFR NON-AFRICAN AMERICAN > 60
--- NOTE | 2018-10-26 09:09 | CP.PCM.PN ---
<Oscar Samano - Last Filed: 10/26/18 14:28> Subjective - Date & Time of Evaluation Date of Evaluation: 10/26/18 Time of Evaluation: 09:09 - Subjective Subjective: Oscar Samano DO, PGY-1 Hospitalist Progress Note for Dr. Yun Serra Patient was seen and examined at bedside this AM. He reports feeling better this AM and has not had any additional seizures. He denies fever/chills, WEBBER, changes in vision, peripheral sensory changes, peripheral numbness/tingling, tremor, or other seizure like activity. Objective - Vital Signs/Intake and Output Vital Signs (last 24 hours): Temp Pulse Resp BP Pulse Ox 97.0 F L 113 H 20 121/91 H 97 10/26/18 04:00 10/26/18 06:02 10/26/18 06:02 10/26/18 06:02 10/26/18 06:02 Intake and Output: 10/26/18 10/26/18 06:59 18:59 Intake Total 930 Output Total 1300 Balance -370 - Medications Medications: Current Medications Dexamethasone (Decadron) 4 mg PO Q6 [facility] Last Admin: 10/26/18 06:09 Dose: 4 mg Sodium Chloride (Sodium Chloride 0.9%) 1,000 mls @ 75 mls/hr IV .[id number] [facility] Last Admin: 10/25/18 18:30 Dose: 75 mls/hr Levetiracetam (Keppra) 750 mg PO BID [facility] Last Admin: 10/25/18 19:00 Dose: Not Given Lorazepam (Ativan) 2 mg IVP Q4 PRN; Protocol PRN Reason: Seizure activity Ondansetron HCl (Zofran Inj) 4 mg IVP Q4H PRN PRN Reason: Nausea/Vomiting Pantoprazole Sodium (Protonix Inj) 40 mg IVP DAILY [facility] - Labs Labs: 10/26/18 08:30 10/26/18 08:30 PT 11.2 SECONDS (9.4-12.5) 10/25/18 12:30 INR 0.99 10/25/18 12:30 APTT 31.8 Seconds (26.9-38.3) 10/25/18 12:30 - Constitutional Appears: Non-toxic, No Acute Distress - Head Exam Head Exam: ATRAUMATIC, NORMOCEPHALIC - Eye Exam Eye Exam: EOMI, PERRL. absent: Nystagmus Pupil Exam: PERRL - ENT Exam ENT Exam: Mucous Membranes Moist - Neck Exam Neck Exam: Full ROM, Normal Inspection - Respiratory Exam Respiratory Exam: Clear to Ausculation Bilateral, NORMAL BREATHING PATTERN. absent: Rales, Rhonchi, Wheezes - Cardiovascular Exam Cardiovascular Exam: REGULAR RHYTHM, RRR, +S1, +S2. absent: Gallop, Rubs, Murmur - GI/Abdominal Exam GI & Abdominal Exam: Soft, Normal Bowel Sounds. absent: Guarding, Tenderness, Hernia - Extremities Exam Extremities Exam: Normal Inspection. 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 He was having seizures prior to presentation and then had a witnessed seizure in ED prior to transfer to ICU. Plan: Seizures 2/2 tumor burden and cerebral edema Per prior records from [place], patient has a history of low-grade Right Frontal Oligodendroglioma MRI brain completed this morning shows progression of the same mass Per neurointerventionalist, recommend follow up with neurosurgeon who initially operated on tumor as soon as possible Continue Keppra 750 mg BID, decadron, and ativan PRN for seizure activity Continue q4h neuro checks Continue seizure, aspiration pxns May start regular diet F/u additional neuro IR and neurology recs DVT/GI PPX: SCD/protonix Full Code Regular diet Transfer to remote tele Patient seen, examined, and plan discussed with my attending Dr. Yun Samano D.O. IM Resident PGY-1 Pager: [phone] <Marisol Serra - Last Filed: 10/27/18 16:33> Objective - Vital Signs/Intake and Output Vital Signs (last 24 hours): Temp Pulse Resp BP Pulse Ox 98.1 F 84 36 H 135/68 93 L 10/27/18 08:00 10/27/18 14:30 10/27/18 14:30 10/27/18 08:01 10/27/18 08:30 Intake and Output: 10/27/18 10/27/18 06:59 18:59 Output Total 100 Balance -100 - Medications Medications: Current Medications Dexamethasone (Decadron) 4 mg PO Q6 [facility] Last Admin: 10/27/18 12:02 Dose: 4 mg Levetiracetam (Keppra) 1,000 mg PO BID [facility] Last Admin: 10/27/18 10:37 Dose: 1,000 mg Lorazepam (Ativan) 2 mg IVP Q4 PRN; Protocol PRN Reason: Seizure activity Ondansetron HCl (Zofran Inj) 4 mg IVP Q4H PRN PRN Reason: Nausea/Vomiting Pantoprazole Sodium (Protonix Ec Tab) 40 mg PO 0600 [facility] Last Admin: 10/27/18 06:46 Dose: 40 mg - Labs Labs: 10/27/18 05:30 10/27/18 05:30 PT 11.2 SECONDS (9.4-12.5) 10/25/18 12:30 INR 0.99 10/25/18 12:30 APTT 31.8 Seconds (26.9-38.3) 10/25/18 12:30 Attending/Attestation - Attestation I have personally seen and examined this patient.: Yes I have fully participated in the care of the patient.: Yes I have reviewed all pertinent clinical information, including history, physical exam and plan: Yes Notes (Text): Patient seen and examined by me with resident at 9:30AM on 10/26/18. Case including HPI, physical exam, and assessment and plan discussed with resident. Agree with above with following additions/corrections. Patient is a 43-year-old male with past medical history significant for brain tumor status post resection right frontal parietal craniotomy that presented to the emergency room with seizures. Patient states he's feeling better today. Denies any more seizure activity. Patient denies any headaches or dizziness. No change in vision. No lightheadedness. No chest pain or palpitations. Patient states he feels a little short of breath but O2 via nasal cannula is helping. No fevers or chills. No nausea, vomiting, or abdominal pain. States he feels hungry. No dysuria. Patient states last bowel movement was 2 days ago. Physical exam: General: Awake and alert lying in bed in no acute distress HEENT: Normocephalic, atraumatic. Extraocular muscles intact, pupils equal and reactive, no scleral icterus. Oropharynx is pink and moist. No pharyngeal erythema or exudates appreciated. Neck is supple. Cardiovascular: Regular rhythm. Normal S1 and S2. No murmurs, rubs, or gallops appreciated Pulmonary: Normal respiratory effort. No rhonchi, rales, or wheezing appreciated. Gastrointestinal: Soft, nondistended. Nontender. Positive bowel sounds all 4 quadrants. No guarding. Musculoskeletal: Moves all extremities, no calf tenderness. No edema appreciated. Central nervous system: AAOx3, CN 2-12 grossly intact. 5/5 muscle strength all extremities Dermatologic: Skin warm and dry. Assessment and plan: Patient is a 43-year-old male with past medical history si gnificant for brain tumor status post resection right frontal parietal craniotomy that presented to the emergency room with seizures. 1. Seizures. Head CT per radiologist's showed patient status post right frontal parietal craniotomy, there has resection of the anterior right temporal lobe, there is edema and mass affect consistent with an infiltrating tumor, there is some mass effect upon the right lateral ventricle specifically to frontal horn, there are no acute findings. MRI brain pending. Neurology following, recommendations appreciated. Per neurosurgery patient to follow-up with neuroskedar correa post discharge, no acute intervention indicated. Continue seizure precautions. Continue Decadron. Continue with Keppra. 2. Abdominal pain. Resolved. Per patient he had abdominal pain prior to having seizure at home. CT abdomen and pelvis per radiologist showed unremarkable contrast-enhanced CT of the abdomen and pelvis. 3. GI/DVT prophylaxis. Protonix/SCDs. Case was discussed in detail with the patient and patient's at bedside regarding current diagnosis and treatment plan. All questions answered.
[2018-10-26] MEDS ORDERED: Gadodiamide 287 MG/ML VIAL (15ML) IV ONE (09:38)
--- NOTE | 2018-10-26 10:09 | MRI ---
Date of service: 10/26/2018 PROCEDURE: MRI BRAIN WITH AND WITHOUT CONTRAST HISTORY: evaluate brain tumor and edema COMPARISON: None available. TECHNIQUE: Multiplanar, multisequence MR images of the brain were obtained with and without intravenous contrast enhancement. 15 cc of Omniscan FINDINGS: HEMORRHAGE: None DWI: No evidence of an acute or early subacute infarction. BRAIN PARENCHYMA: There is diffuse infiltrating tumor in the right frontal lobe with extension into the temporal lobe, right thalamus, right head of caudate nucleus and midbrain. This measures 11.3 cm AP x 6.3 cm wide and 4.9 cm in height. A surgical defect is seen in the right anterior temporal lobe. The operative defect measures 4.4 x 4.1 cm. There is no enhancement or hemorrhage seen. 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 ENHANCEMENT: No abnormal intracranial enhancement. VENTRICLES: Unremarkable. No hydrocephalus. CRANIUM: Previous right-sided craniotomy ORBITS: Grossly unremarkable. PARANASAL SINUSES/MASTOIDS: Clear VASCULAR SYSTEM: Skull base flow voids intact. OTHER FINDINGS: None . IMPRESSION: There is diffuse infiltrating tumor in the right frontal lobe with extension into the temporal lobe, right thalamus, right head of caudate nucleus and midbrain. This measures 11.3 cm AP x 6.3 cm wide and 4.9 cm in height. A surgical defect is seen in the right anterior temporal lobe. The operative defect measures 4.4 x 4.1 cm. There is no enhancement or hemorrhage seen. 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
--- NOTE | 2018-10-26 11:05 | RAD ---
Date of service: 10/25/2018 HISTORY: PHILIP COMPARISON: No prior. FINDINGS: LUNGS: No active pulmonary disease. PLEURA: No significant pleural effusion identified, no pneumothorax apparent. CARDIOVASCULAR: No atherosclerotic calcification present Normal. OSSEOUS STRUCTURES: No significant abnormalities. VISUALIZED UPPER ABDOMEN: Normal. OTHER FINDINGS: None. IMPRESSION: No active disease.
--- NOTE | 2018-10-26 13:11 | CP.PCM.PN ---
Subjective - Date & Time of Evaluation Date of Evaluation: 10/26/18 Time of Evaluation: 13:09 - Subjective Subjective: Spoke to resident earlier MR consistent with Right Frontal Oligodendroglioma, low grade as per pts history Adm with Seizure now back to baseline No acute intervention indicated Suggest he has eval by oncologist/RT and routine f/u with neurosurgeon post d/c Suggest he return to surgeon who initially operated on him is possible Objective - Vital Signs/Intake and Output Vital Signs (last 24 hours): Temp Pulse Resp BP Pulse Ox 97.0 F L 90 22 129/77 96 10/26/18 04:00 10/26/18 11:10 10/26/18 11:10 10/26/18 09:00 10/26/18 09:10 Intake and Output: 10/26/18 10/26/18 06:59 18:59 Intake Total 930 Output Total 1300 Balance -370 - Medications Medications: Current Medications Dexamethasone (Decadron) 4 mg PO Q6 [facility] Last Admin: 10/26/18 12:31 Dose: 4 mg Sodium Chloride (Sodium Chloride 0.9%) 1,000 mls @ 75 mls/hr IV .[id number] [facility] Last Admin: 10/25/18 18:30 Dose: 75 mls/hr Levetiracetam (Keppra) 1,000 mg PO BID [facility] Lorazepam (Ativan) 2 mg IVP Q4 PRN; Protocol PRN Reason: Seizure activity Ondansetron HCl (Zofran Inj) 4 mg IVP Q4H PRN PRN Reason: Nausea/Vomiting Pantoprazole Sodium (Protonix Ec Tab) 40 mg PO 0600 [facility] - Labs Labs: 10/26/18 08:30 10/26/18 08:30 PT 11.2 SECONDS (9.4-12.5) 10/25/18 12:30 INR 0.99 10/25/18 12:30 APTT 31.8 Seconds (26.9-38.3) 10/25/18 12:30
--- NOTE | 2018-10-26 15:30 | CP.CCUPN ---
<Shellie Lewis - Last Filed: 10/26/18 15:23> CCU Subjective - Physician Review Subjective (Free Text): 10/26/18 15:25 Shellie Lewis, PGY-1 ICU Progress Note for Dr. Sharma: Pt was seen and examined this AM by ICU team. Pt states that he does not remember the seizure that he had at home yesterday nor does he remember the second seizure that he had in the ED. Pt states the last thing he remembers was walking at home when he felt lightheaded. He states that today he feels better and does not have any headaches or lightheadedness. He denies any weakness or numbness/tingling. He also denies fevers, chills, headache, chest pain, palpitations, LE swelling, cough, SOB, abd pain, n/v, c/d, dysuria or hematuria. CCU Objective - Vital Signs / Intake & Output Intake and Output (Last 8hrs): Intake & Output 10/26/18 10/26/18 10/26/18 06:59 14:59 22:59 Intake Total 930 Output Total 1300 Balance -370 Intake: IV 900 Left Hand 900 Oral 30 Output: Urine 1300 Urine, Voided 1300 Stool 0 Urine/Stool Mix 0 Emesis 0 Oral Regurgitation 0 Other 0 Other: # Voids Urine, Voided 4 # Bowel Movements 0 - Physical Exam Head: Positive for: Atraumatic, Normocephalic Pupils: Positive for: PERRL Extroacular Muscles: Positive for: EOMI Conjunctiva: Positive for: Normal Mouth: Positive for: Moist Mucous Membranes Neck: Positive for: Normal Range of Motion Respiratory/Chest: Positive for: Clear to Auscultation, Good Air Exchange. Negative for: Respiratory Distress, Accessory Muscle Use Cardiovascular: Positive for: Regular Rate and Rhythm, Normal S1, S2. Negative for: Murmurs Abdomen: Negative for: Tenderness, Distention, Peritoneal Signs Back: Positive for: Normal Inspection Upper Extremity: Positive for: Normal Inspection. Negative for: Cyanosis, Edema Lower Extremity: Positive for: Normal Inspection. Negative for: Edema Neurological: Positive for: GCS=15, CN II-XII Intact, Speech Normal Skin: Positive for: Warm, Dry, Normal Color. Negative for: Rashes Psychiatric: Positive for: Alert, Oriented x 3, Normal Insight, Normal Concentration - Medications Active Medications: Active Medications Generic Name Dose Route Start Last Admin Trade Name Freq PRN Reason Stop Dose Admin Dexamethasone 4 mg 10/25/18 18:00 10/26/18 12:31 Decadron PO 4 mg Q6 MONTY Administration Sodium Chloride 1,000 mls @ 75 mls/hr 10/25/18 18:00 10/25/18 18:30 Sodium Chloride 0.9% IV 75 mls/hr .[id number] MONTY Administration Levetiracetam 1,000 mg 10/26/18 11:48 Keppra PO BID MONTY Lorazepam 2 mg 10/25/18 17:04 Ativan IVP Q4 PRN Seizure activity Protocol Ondansetron HCl 4 mg 10/25/18 18:28 Zofran Inj IVP Q4H PRN Nausea/Vomiting Pantoprazole Sodium 40 mg 10/27/18 06:00 Protonix Ec Tab PO 0600 MONTY - Patient Studies Lab Studies: Lab Studies 10/26/18 10/26/18 10/26/18 Range/Units 08:30 08:30 08:30 WBC 14.4 H D (4.5-11.0) 10^3/uL RBC 5.10 (3.5-6.1) 10^6/uL Hgb 13.8 L (14.0-18.0) g/dL Hct 42.0 (42.0-52.0) % MCV 82.4 (80.0-105.0) fl MCH 27.1 (25.0-35.0) pg MCHC 32.9 (31.0-37.0) g/dl RDW 13.2 (11.5-14.5) % Plt Count 331 (120.0-450.0) 10^3/uL MPV 9.5 (7.0-11.0) fl Neut % (Auto) 84.2 H (50.0-68.0) % Lymph % (Auto) 12.5 L (22.0-35.0) % Dav[place] % (Auto) 3.2 (1.0-6.0) % Eos % (Auto) 0.0 L (1.5-5.0) % Baso % (Auto) 0.1 (0.0-3.0) % Lymph # (Auto) 1.8 (1.2-3.4) [place] # (Auto) 0.5 (0.1-0.6) Eos # (Auto) 0.0 (0.0-0.7) Baso # (Auto) 0.01 (0.0-2.0) K/mm3 Absolute Neuts (auto) 12.11 H (1.4-6.5) Sodium 138 (132-148) mmol/L Potassium 4.2 (3.6-5.0) mmol/L Chloride 107 (98-107) mmol/L Carbon Dioxide 24 (21-33) mmol/L Anion Gap 11 (10-20) BUN 17 (7-21) mg/dL Creatinine 0.8 (0.8-1.5) mg/dl Est GFR ( Amer) > 60 Est GFR (Non-Af Amer) > 60 POC Glucose (mg/dL) (65-110) mg/dL Random Glucose 117 H (70-110) mg/dL Calcium 9.3 (8.4-10.5) mg/dL Total Bilirubin 0.3 (0.2-1.3) mg/dL AST 19 (17-59) U/L ALT 24 (7-56) U/L Alkaline Phosphatase 51 (38-126) U/L Total Creatine Kinase 158 (35-230) U/L Total Protein 7.2 (5.8-8.3) g/dL Albumin 4.0 (3.0-4.8) g/dL Globulin 3.2 gm/dL Albumin/Globulin Ratio 1.3 (1.1-1.8) Urine Color (YELLOW) Urine Appearance (CLEAR) Urine pH (4.7-8.0) Ur Specific [place] (1.005-1.035) Urine Protein (<30 mg/dL) mg/dL Urine Glucose (UA) (NEGATIVE) mg/dL Urine Ketones (NEGATIVE) mg/dL Urine Blood (NEGATIVE) Urine Nitrate (NEGATIVE) Urine Bilirubin (NEGATIVE) Urine Urobilinogen (<1 E.U./dL) E.U./dL Ur Leukocyte Esterase (NEGATIVE) Charly/uL 10/25/18 10/25/18 Range/Units 20:42 14:42 WBC (4.5-11.0) 10^3/uL RBC (3.5-6.1) 10^6/uL Hgb (14.0-18.0) g/dL Hct (42.0-52.0) % MCV (80.0-105.0) fl MCH (25.0-35.0) pg MCHC (31.0-37.0) g/dl RDW (11.5-14.5) % Plt Count (120.0-450.0) 10^3/uL MPV (7.0-11.0) fl Neut % (Auto) (50.0-68.0) % Lymph % (Auto) (22.0-35.0) % Davison % (Auto) (1.0-6.0) % Eos % (Auto) (1.5-5.0) % Baso % (Auto) (0.0-3.0) % Lymph # (Auto) (1.2-3.4) [place] # (Auto) (0.1-0.6) Eos # (Auto) (0.0-0.7) Baso # (Auto) (0.0-2.0) K/mm3 Absolute Neuts (auto) (1.4-6.5) Sodium (132-148) mmol/L Potassium (3.6-5.0) mmol/L Chloride (98-107) mmol/L Carbon Dioxide (21-33) mmol/L Anion Gap (10-20) BUN (7-21) mg/dL Creatinine (0.8-1.5) mg/dl Est GFR ( Amer) Est GFR (Non-Af Amer) POC Glucose (mg/dL) 137 H (65-110) mg/dL Random Glucose (70-110) mg/dL Calcium (8.4-10.5) mg/dL Total Bilirubin (0.2-1.3) mg/dL AST (17-59) U/L ALT (7-56) U/L Alkaline Phosphatase (38-126) U/L Total Creatine Kinase (35-230) U/L Total Protein (5.8-8.3) g/dL Albumin (3.0-4.8) g/dL Globulin gm/dL Albumin/Globulin Ratio (1.1-1.8) Urine Color Straw (YELLOW) Urine Appearance Clear (CLEAR) Urine pH 6.5 (4.7-8.0) Ur Specific [place] <= 1.005 (1.005-1.035) Urine Protein Negative (<30 mg/dL) mg/dL Urine Glucose (UA) Negative (NEGATIVE) mg/dL Urine Ketones Negative (NEGATIVE) mg/dL Urine Blood Negative (NEGATIVE) Urine Nitrate Negative (NEGATIVE) Urine Bilirubin Negative (NEGATIVE) Urine Urobilinogen 0.2 (<1 E.U./dL) E.U./dL Ur Leukocyte Esterase Negative (NEGATIVE) Charly/uL Laboratory Results - last 24 hr 10/25/18 10/25/18 10/26/18 14:42 20:42 08:30 WBC 14.4 H D RBC 5.10 Hgb 13.8 L Hct 42.0 MCV 82.4 MCH 27.1 MCHC 32.9 RDW 13.2 Plt Count 331 MPV 9.5 Neut % (Auto) 84.2 H Lymph % (Auto) 12.5 L Dav[place] % (Auto) 3.2 Eos % (Auto) 0.0 L Baso % (Auto) 0.1 Lymph # (Auto) 1.8 [place] # (Auto) 0.5 Eos # (Auto) 0.0 Baso # (Auto) 0.01 Absolute Neuts (auto) 12.11 H Sodium Potassium Chloride Carbon Dioxide Anion Gap BUN Creatinine Est GFR ( Amer) Est GFR (Non-Af Amer) POC Glucose (mg/dL) 137 H Random Glucose Calcium Total Bilirubin AST ALT Alkaline Phosphatase Total Creatine Kinase Total Protein Albumin Globulin Albumin/Globulin Ratio Urine Color Straw Urine Appearance Clear Urine pH 6.5 Ur Specific [place] <= 1.005 Urine Protein Negative Urine Glucose (UA) Negative Urine Ketones Negative Urine Blood Negative Urine Nitrate Negative Urine Bilirubin Negative Urine Urobilinogen 0.2 Ur Leukocyte Esterase Negative 10/26/18 10/26/18 08:30 08:30 WBC RBC Hgb Hct MCV MCH MCHC RDW Plt Count MPV Neut % (Auto) Lymph % (Auto) [place] % (Auto) Eos % (Auto) Baso % (Auto) Lymph # (Auto) [place] # (Auto) Eos # (Auto) Baso # (Auto) Absolute Neuts (auto) Sodium 138 Potassium 4.2 Chloride 107 Carbon Dioxide 24 Anion Gap 11 BUN 17 Creatinine 0.8 Est GFR ( Amer) > 60 Est GFR (Non-Af Amer) > 60 POC Glucose (mg/dL) Random Glucose 117 H Calcium 9.3 Total Bilirubin 0.3 AST 19 ALT 24 Alkaline Phosphatase 51 Total Creatine Kinase 158 Total Protein 7.2 Albumin 4.0 Globulin 3.2 Albumin/Globulin Ratio 1.3 Urine Color Urine Appearance Urine pH Ur Specific [place] Urine Protein Urine Glucose (UA) Urine Ketones Urine Blood Urine Nitrate Urine Bilirubin Urine Urobilinogen Ur Leukocyte Esterase Radiology Impressions: Radiology Impressions Abdomen/Pelvis CT 10/25/18 14:15 IMPRESSION: Unremarkable contrast enhanced CT of the abdomen and pelvis. Head CT 10/25/18 14:15 IMPRESSION: Patient is status post right frontal parietal craniotomy. There has been resection of the anterior right temporal lobe. There is edema and mass effect consistent with an infiltrating tumor. There is some mass effect upon the right lateral ventricle specifically the frontal horn. Findings are unchanged. There are no acute findings. Chest X-Ray 10/25/18 17:04 IMPRESSION: No active disease. Brain MRI 10/26/18 09:22 IMPRESSION: There is diffuse infiltrating tumor in the right frontal lobe with extension into the temporal lobe, right thalamus, right head of caudate nucleus and midbrain. This measures 11.3 cm AP x 6.3 cm wide and 4.9 cm in height. A surgical defect is seen in the right anterior temporal lobe. The operative defect measures 4.4 x 4.1 cm. There is no enhancement or hemorrhage seen. 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 Fingerstick Blood Sugar Results: 137 Review of Systems - Review of Systems Review of Systems: 12 point ROS reviewed and negative except noted in HPI above. Critical Care Progress Note - Nutrition Nutrition: Nutrition Category Date Time Status Regular Diet [DIET] Diets 10/26/18 Breakfast Ordered Assessment/Plan - Assessment and Plan (Free Text) Assessment: 43 year old male with a PMH of a brain tumor (diagnosed 2013 at [place], [place]) s/p resection of anterior right temporal lobe and right frontal parietal craniotomy who is presenting with seizures. CT shows edema and mass effect consistent w/ infiltrating tumor. Patient had a seizure in ED, and was received loading dose of Keppra, as well as Ativan. Pt was transferred to ICU for close neuro monitoring. 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 Case seen, examined and discussed with Dr. Edith Lewis, PGY-1 <Fitz Sharma - Last Filed: 10/26/18 17:05> CCU Objective - Vital Signs / Intake & Output Intake and Output (Last 8hrs): Intake & Output 10/26/18 10/26/18 10/26/18 06:59 14:59 22:59 Intake Total 930 Output Total 1300 Balance -370 Intake: IV 900 Left Hand 900 Oral 30 Output: Urine 1300 Urine, Voided 1300 Stool 0 Urine/Stool Mix 0 Emesis 0 Oral Regurgitation 0 Other 0 Other: # Voids Urine, Voided 4 # Bowel Movements 0 - Medications Active Medications: Active Medications Generic Name Dose Route Start Last Admin Trade Name Freq PRN Reason Stop Dose Admin Dexamethasone 4 mg 10/25/18 18:00 10/26/18 12:31 Decadron PO 4 mg Q6 MONTY Administration Sodium Chloride 1,000 mls @ 75 mls/hr 10/25/18 18:00 10/25/18 18:30 Sodium Chloride 0.9% IV 75 mls/hr .[id number] MONTY Administration Levetiracetam 1,000 mg 10/26/18 11:48 Keppra PO BID MONTY Lorazepam 2 mg 10/25/18 17:04 Ativan IVP Q4 PRN Seizure activity Protocol Ondansetron HCl 4 mg 10/25/18 18:28 Zofran Inj IVP Q4H PRN Nausea/Vomiting Pantoprazole Sodium 40 mg 10/27/18 06:00 Protonix Ec Tab PO 0600 MONTY - Patient Studies Lab Studies: Lab Studies 10/26/18 10/26/18 10/26/18 Range/Units 08:30 08:30 08:30 WBC 14.4 H D (4.5-11.0) 10^3/uL RBC 5.10 (3.5-6.1) 10^6/uL Hgb 13.8 L (14.0-18.0) g/dL Hct 42.0 (42.0-52.0) % MCV 82.4 (80.0-105.0) fl MCH 27.1 (25.0-35.0) pg MCHC 32.9 (31.0-37.0) g/dl RDW 13.2 (11.5-14.5) % Plt Count 331 (120.0-450.0) 10^3/uL MPV 9.5 (7.0-11.0) fl Neut % (Auto) 84.2 H (50.0-68.0) % Lymph % (Auto) 12.5 L (22.0-35.0) % [place] % (Auto) 3.2 (1.0-6.0) % Eos % (Auto) 0.0 L (1.5-5.0) % Baso % (Auto) 0.1 (0.0-3.0) % Lymph # (Auto) 1.8 (1.2-3.4) [place] # (Auto) 0.5 (0.1-0.6) Eos # (Auto) 0.0 (0.0-0.7) Baso # (Auto) 0.01 (0.0-2.0) K/mm3 Absolute Neuts (auto) 12.11 H (1.4-6.5) Sodium 138 (132-148) mmol/L Potassium 4.2 (3.6-5.0) mmol/L Chloride 107 (98-107) mmol/L Carbon Dioxide 24 (21-33) mmol/L Anion Gap 11 (10-20) BUN 17 (7-21) mg/dL Creatinine 0.8 (0.8-1.5) mg/dl Est GFR ( Amer) > 60 Est GFR (Non-Af Amer) > 60 POC Glucose (mg/dL) (65-110) mg/dL Random Glucose 117 H (70-110) mg/dL Calcium 9.3 (8.4-10.5) mg/dL Total Bilirubin 0.3 (0.2-1.3) mg/dL AST 19 (17-59) U/L ALT 24 (7-56) U/L Alkaline Phosphatase 51 (38-126) U/L Total Creatine Kinase 158 (35-230) U/L Total Protein 7.2 (5.8-8.3) g/dL Albumin 4.0 (3.0-4.8) g/dL Globulin 3.2 gm/dL Albumin/Globulin Ratio 1.3 (1.1-1.8) Urine Color (YELLOW) Urine Appearance (CLEAR) Urine pH (4.7-8.0) Ur Specific [place] (1.005-1.035) Urine Protein (<30 mg/dL) mg/dL Urine Glucose (UA) (NEGATIVE) mg/dL Urine Ketones (NEGATIVE) mg/dL Urine Blood (NEGATIVE) Urine Nitrate (NEGATIVE) Urine Bilirubin (NEGATIVE) Urine Urobilinogen (<1 E.U./dL) E.U./dL Ur Leukocyte Esterase (NEGATIVE) Charly/uL 10/25/18 10/25/18 Range/Units 20:42 14:42 WBC (4.5-11.0) 10^3/uL RBC (3.5-6.1) 10^6/uL Hgb (14.0-18.0) g/dL Hct (42.0-52.0) % MCV (80.0-105.0) fl MCH (25.0-35.0) pg MCHC (31.0-37.0) g/dl RDW (11.5-14.5) % Plt Count (120.0-450.0) 10^3/uL MPV (7.0-11.0) fl Neut % (Auto) (50.0-68.0) % Lymph % (Auto) (22.0-35.0) % [place] % (Auto) (1.0-6.0) % Eos % (Auto) (1.5-5.0) % Baso % (Auto) (0.0-3.0) % Lymph # (Auto) (1.2-3.4) [place] # (Auto) (0.1-0.6) Eos # (Auto) (0.0-0.7) Baso # (Auto) (0.0-2.0) K/mm3 Absolute Neuts (auto) (1.4-6.5) Sodium (132-148) mmol/L Potassium (3.6-5.0) mmol/L Chloride (98-107) mmol/L Carbon Dioxide (21-33) mmol/L Anion Gap (10-20) BUN (7-21) mg/dL Creatinine (0.8-1.5) mg/dl Est GFR ( Amer) Est GFR (Non-Af Amer) POC Glucose (mg/dL) 137 H (65-110) mg/dL Random Glucose (70-110) mg/dL Calcium (8.4-10.5) mg/dL Total Bilirubin (0.2-1.3) mg/dL AST (17-59) U/L ALT (7-56) U/L Alkaline Phosphatase (38-126) U/L Total Creatine Kinase (35-230) U/L Total Protein (5.8-8.3) g/dL Albumin (3.0-4.8) g/dL Globulin gm/dL Albumin/Globulin Ratio (1.1-1.8) Urine Color Straw (YELLOW) Urine Appearance Clear (CLEAR) Urine pH 6.5 (4.7-8.0) Ur Specific [place] <= 1.005 (1.005-1.035) Urine Protein Negative (<30 mg/dL) mg/dL Urine Glucose (UA) Negative (NEGATIVE) mg/dL Urine Ketones Negative (NEGATIVE) mg/dL Urine Blood Negative (NEGATIVE) Urine Nitrate Negative (NEGATIVE) Urine Bilirubin Negative (NEGATIVE) Urine Urobilinogen 0.2 (<1 E.U./dL) E.U./dL Ur Leukocyte Esterase Negative (NEGATIVE) Charly/uL Laboratory Results - last 24 hr 10/25/18 10/25/18 10/26/18 14:42 20:42 08:30 WBC 14.4 H D RBC 5.10 Hgb 13.8 L Hct 42.0 MCV 82.4 MCH 27.1 MCHC 32.9 RDW 13.2 Plt Count 331 MPV 9.5 Neut % (Auto) 84.2 H Lymph % (Auto) 12.5 L [place] % (Auto) 3.2 Eos % (Auto) 0.0 L Baso % (Auto) 0.1 Lymph # (Auto) 1.8 [place] # (Auto) 0.5 Eos # (Auto) 0.0 Baso # (Auto) 0.01 Absolute Neuts (auto) 12.11 H Sodium Potassium Chloride Carbon Dioxide Anion Gap BUN Creatinine Est GFR ( Amer) Est GFR (Non-Af Amer) POC Glucose (mg/dL) 137 H Random Glucose Calcium Total Bilirubin AST ALT Alkaline Phosphatase Total Creatine Kinase Total Protein Albumin Globulin Albumin/Globulin Ratio Urine Color Straw Urine Appearance Clear Urine pH 6.5 Ur Specific [place] <= 1.005 Urine Protein Negative Urine Glucose (UA) Negative Urine Ketones Negative Urine Blood Negative Urine Nitrate Negative Urine Bilirubin Negative Urine Urobilinogen 0.2 Ur Leukocyte Esterase Negative 10/26/18 10/26/18 08:30 08:30 WBC RBC Hgb Hct MCV MCH MCHC RDW Plt Count MPV Neut % (Auto) Lymph % (Auto) [place] % (Auto) Eos % (Auto) Baso % (Auto) Lymph # (Auto) [place] # (Auto) Eos # (Auto) Baso # (Auto) Absolute Neuts (auto) Sodium 138 Potassium 4.2 Chloride 107 Carbon Dioxide 24 Anion Gap 11 BUN 17 Creatinine 0.8 Est GFR ( Amer) > 60 Est GFR (Non-Af Amer) > 60 POC Glucose (mg/dL) Random Glucose 117 H Calcium 9.3 Total Bilirubin 0.3 AST 19 ALT 24 Alkaline Phosphatase 51 Total Creatine Kinase 158 Total Protein 7.2 Albumin 4.0 Globulin 3.2 Albumin/Globulin Ratio 1.3 Urine Color Urine Appearance Urine pH Ur Specific [place] Urine Protein Urine Glucose (UA) Urine Ketones Urine Blood Urine Nitrate Urine Bilirubin Urine Urobilinogen Ur Leukocyte Esterase Radiology Impressions: Radiology Impressions Chest X-Ray 10/25/18 17:04 IMPRESSION: No active disease. Brain MRI 10/26/18 09:22 IMPRESSION: There is diffuse infiltrating tumor in the right frontal lobe with extension into the temporal lobe, right thalamus, right head of caudate nucleus and midbrain. This measures 11.3 cm AP x 6.3 cm wide and 4.9 cm in height. A surgical defect is seen in the right anterior temporal lobe. The operative defect measures 4.4 x 4.1 cm. There is no enhancement or hemorrhage seen. 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 Critical Care Progress Note - Nutrition Nutrition: Nutrition Category Date Time Status Regular Diet [DIET] Diets 10/26/18 Breakfast Ordered Addendum Addendum: 10/26/18 17:02 ICU Attending Addendum Patient seen and examined. Case reviewed on round with housestaff. Agree with resident note above with the following additions/exceptions 43M with brain tumor dx 2013 s/p resection of anterior right temporal lobe and right frontal parietal craniotomy who is presenting with seizures. Has not had seizure since being admitted. no evidence of status epilipticus. CT shows edema and mass effect consistent w/ infiltrating tumor but similar to prior ct scan neuro surg and neuro on board managing mass and seizures he is not in a postictal state no seizures since being admitted ok to transfer to floors Rest of care as above in housestaff note Fitz Sharma MD Pulmonary Critical Care Attending
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
[2018-10-27] MEDS ORDERED: Pantoprazole 40 mg EC Tab PO SCH (06:00)
[2018-10-27 06:25] LABS: HEMOGLOBIN 14.2 g/dL (14.0-18.0); LYMPH # 1.8 (1.2-3.4); LYMPH % 10.3 % (22.0-35.0); MEAN CELL VOLUME 81.9 fl (80.0-105.0); MEAN CORPUSCULAR HEMOGLOBIN 27.4 pg (25.0-35.0); MEAN CORPUSCULAR HGB CONC 33.4 g/dl (31.0-37.0); MEAN PLATELET VOLUME 10.1 fl (7.0-11.0); MONO # 0.4 (0.1-0.6); MONO % 2.2 % (1.0-6.0); RBC 5.19 10^6/uL (3.5-6.1); RED CELL DISTRIBUTION WIDTH 13.4 % (11.5-14.5); WHITE BLOOD COUNT 17.5 10^3/uL (4.5-11.0)
[2018-10-27 06:48] LABS: ALB/GLOB RATIO 1.5 (1.1-1.8); ALBUMIN 4.2 g/dL (3.0-4.8); ALT/SGPT 26 U/L (7-56); AST/SGOT 19 U/L (17-59); BLOOD UREA NITROGEN 20 mg/dL (7-21); CALCIUM 9.8 mg/dL (8.4-10.5); GFR NON-AFRICAN AMERICAN > 60
--- NOTE | 2018-10-27 07:37 | CP.PCM.PN ---
Subjective - Date & Time of Evaluation Date of Evaluation: 10/27/18 Time of Evaluation: 07:36 - Subjective Subjective: Oscar Samano DO, PGY-1 Hospitalist Progress Note for Dr. Yun Serra Patient was seen and examined at bedside this AM. He offers no new complaints this AM and has had no additional seizure like activity since last episode in ED. Objective - Vital Signs/Intake and Output Vital Signs (last 24 hours): Temp Pulse Resp BP Pulse Ox 97.0 F L 90 22 129/77 96 10/26/18 04:00 10/27/18 02:00 10/26/18 11:10 10/26/18 09:00 10/26/18 09:10 - Medications Medications: Current Medications Dexamethasone (Decadron) 4 mg PO Q6 [facility] Last Admin: 10/27/18 06:46 Dose: 4 mg Levetiracetam (Keppra) 1,000 mg PO BID [facility] Last Admin: 10/26/18 18:14 Dose: 1,000 mg Lorazepam (Ativan) 2 mg IVP Q4 PRN; Protocol PRN Reason: Seizure activity Ondansetron HCl (Zofran Inj) 4 mg IVP Q4H PRN PRN Reason: Nausea/Vomiting Pantoprazole Sodium (Protonix Ec Tab) 40 mg PO 0600 [facility] Last Admin: 10/27/18 06:46 Dose: 40 mg - Labs Labs: 10/27/18 05:30 10/27/18 05:30 PT 11.2 SECONDS (9.4-12.5) 10/25/18 12:30 INR 0.99 10/25/18 12:30 APTT 31.8 Seconds (26.9-38.3) 10/25/18 12:30 - Constitutional Appears: Non-toxic, No Acute Distress - Head Exam Head Exam: ATRAUMATIC, NORMOCEPHALIC - Eye Exam Eye Exam: EOMI, PERRL - ENT Exam ENT Exam: Mucous Membranes Moist - Neck Exam Neck Exam: Full ROM, Normal Inspection - Respiratory Exam Respiratory Exam: Clear to Ausculation Bilateral, NORMAL BREATHING PATTERN. absent: Rales, Rhonchi, Wheezes - Cardiovascular Exam Cardiovascular Exam: REGULAR RHYTHM, RRR, +S1, +S2. absent: Gallop, Rubs, Murmur - GI/Abdominal Exam GI & Abdominal Exam: Soft, Normal Bowel Sounds. absent: Guarding, Tenderness - Extremities Exam Extremities Exam: Normal Inspection. absent: Calf Tenderness - Back Exam Back Exam: NORMAL INSPECTION - Neurological Exam Neurological Exam: Alert, Awake, CN II-XII Intact, Normal Gait, Oriented x3 Neuro motor strength exam: Left Upper Extremity: 5, Right Upper Extremity: 5, Left Lower Extremity: 5, Right Lower Extremity: 5 - Psychiatric Exam Psychiatric exam: Normal Affect, Normal Mood - Skin Skin Exam: Dry, Intact, Warm
[2018-10-27 08:37] VITALS: BP 135/68; O2SAT 93
[2018-10-27 09:04] VITALS: TEMP 98.1
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
[2018-10-27 14:33] VITALS: PULSE 84; RESP 36
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
== END 2018-10-27 16:59 | disposition home or self-care (01) | DRG 100 ==
LOC: ED 11:45 → ERH 16:22 → CCU 17:06
PROVIDERS: ADMIT Hospitalist; ATTEND Hospitalist
DX: G40.909 Epilepsy, unspecified, not intractable, without status epilepticus (principal); G93.6 Cerebral edema; C71.8 Malignant neoplasm of overlapping sites of brain; R10.9 Unspecified abdominal pain; Z85.841 Personal history of malignant neoplasm of brain; Z87.891 Personal history of nicotine dependence